=== PATIENT | female | born 1970 | race Caucasian/White ===

== ENCOUNTER → 2023-10-03 14:51 | Outpatient (REF) | payer OTHER, SELFPAY ==
[2023-10-03 15:57] LABS: % Basophils 0.9 % (0-2); % Eosinophils 1.6 % (0-6); % Immature Granulocytes 0.2 % (0-0.5); % Monocytes 6.7 % (1.7-9.3); % Neutrophils 63.6 % (42.2-75.2); Absolute Basophils 0.1 10^3/uL (0-0.2); Absolute Eosinophils 0.2 10^3/uL (0-0.7); Absolute Lymphocytes 2.6 10^3/uL (1.2-3.4); Absolute Monocytes 0.7 10^3/uL (0.1-0.6); Absolute Neutrophils 6.2 10^3/uL (1.4-6.5); Hematocrit 38.9 % (37.0-47.0); Hemoglobin 13.4 g/dL (12.0-16.0); Mean Corp Hgb Conc. 34.4 g/dL (33.0-37.0); Mean Corpuscular Hgb 30.7 pg (27.0-31.0); Mean Corpuscular Volume 89.2 fL (81.0-99.0); Nucleated Red Blood Cells % 0 %; Platelet Count 213 10^3/uL (130-400); Red Blood Cell Count 4.36 10^6/uL (4.20-5.40); Red Cell Dist. Width 12.6 % (11.5-14.5); White Blood Cell Count 9.7 10^3/uL (4.8-10.8)
[2023-10-03 16:19] LABS: Blood Urea Nitrogen 15 mg/dl (7-17); Calcium 9.4 mg/dl (8.4-10.2); Carbon Dioxide 25 mmol/L (22-30); Chloride 102 mmol/L (98-107); Glucose 95 mg/dl (70-99); Potassium 3.9 mmol/L (3.5-5.1); Sodium 137 mmol/L (135-145); eGFR > 60.00
== END ==
LOC: RCS 14:51
PROVIDERS: ATTENDING PHYSICIAN Orthopaedic Surgery Hand Surgery; FAMILY PHYSICIAN Internal Medicine
DX: Z01.818 Encounter for other preprocedural examination (principal)
CPT/HCPCS: 36415; 80048; 85025; 93005

== ENCOUNTER 2023-10-22 15:39 | Outpatient (RCR) | payer OTHER, SELFPAY | END 2023-10-22 23:59 | disposition home or self-care (01) | LOC: RPT 15:39 | PROVIDERS: ATTENDING PHYSICIAN Orthopaedic Surgery Hand Surgery; FAMILY PHYSICIAN Internal Medicine | DX: M25.511 Pain in right shoulder (principal); Z98.890 Other specified postprocedural states; Z73.6 Limitation of activities due to disability | CPT/HCPCS: 97110; 97140; 97162 ==

== ENCOUNTER 2023-11-13 10:08 | Outpatient (RCR) | payer OTHER, SELFPAY | END 2023-11-13 23:59 | disposition home or self-care (01) | LOC: RPT 10:08 | PROVIDERS: ATTENDING PHYSICIAN Orthopaedic Surgery Hand Surgery; FAMILY PHYSICIAN Internal Medicine | DX: M25.511 Pain in right shoulder (principal); Z98.890 Other specified postprocedural states; Z73.6 Limitation of activities due to disability | CPT/HCPCS: 97110; 97140 ==

== ENCOUNTER 2023-12-12 11:02 | Outpatient (RCR) | payer OTHER, SELFPAY | END 2023-12-12 23:59 | disposition home or self-care (01) | LOC: RPT 11:02 | PROVIDERS: ATTENDING PHYSICIAN Orthopaedic Surgery Hand Surgery; FAMILY PHYSICIAN Internal Medicine | DX: Z47.89 Encounter for other orthopedic aftercare (principal); Z73.6 Limitation of activities due to disability; M25.511 Pain in right shoulder | CPT/HCPCS: 97110; 97140 ==

== ENCOUNTER → 2023-12-17 12:46 | Outpatient (REF) | payer OTHER, SELFPAY | LOC: HWRAD 12:46 | PROVIDERS: ATTENDING PHYSICIAN Obstetrics & Gynecology Gynecology; FAMILY PHYSICIAN Internal Medicine | DX: N95.0 Postmenopausal bleeding (principal) | CPT/HCPCS: 76830; 76856 ==

== ENCOUNTER 2024-03-06 13:51 | Emergency (ER) | payer OTHER, SELFPAY ==
[2024-03-06 13:55] VITALS: BP 145/83
--- NOTE | 2024-03-06 16:17 | ED.GENMED ---
History of Present Illness
General
Chief Complaint: DVT/Possible Blood Clot
Source: patient
Exam Limitations: none
Time Seen by Provider: 03/06/24 14:47
Nursing documentation reviewed up to this point in time: agreed with
History of Present Illness
History of Present Illness:
53-year-old female left calf pain, onset a few days ago she flew to [place], was very hot doing some running think she could have strained her leg, was not drinking very much, did have some shortness of breath which improved when she came back to the
[place], she thought it was due to the heat, she is been home for about 24 hours no shortness of breath that she has been back no history of DVT PE
Past History
Past History
ED Past Medical History: None
ED Past Surgical History: None
Social History
Tobacco: Non-smoker
Alcohol: None
Drug: None
Personal:
Living: with family
Employment: Employed
Review of Systems
Review of Systems
All Other Systems: Not applicable
Constitutional: Denies fever or fatigue
Respiratory: Denies cough or trouble breathing
Cardiac: Denies chest pain
Musculoskeletal: Reports muscle pain and muscle stiffness
Neurological: Reports no symptoms
Endocrine: Reports no symptoms
Phy Exam
Physical Exam
Physical Exam:
Physical Exam
General: no apparent distress, not acutely ill
Neck: no jaundice
Heart: s1/s2 regular rate and rhythm, no murmur. equal radial pulses.
Lungs: no acute respiratory distress. clear bilaterally
Neuro: alert and oriented. no focal neurological deficits
Skin: no rash
Psychiatric: well kept. interactive and cooperative
Extremities: Tenderness in the left calf no cords
Course
Orders/Labs/Results
Orders:
Orders
03/06/24 14:04
US Periph Venous LOWER Ext LT Urgent
Comment:
Reason For Exam: calf pain
Vital Signs
Initial and Last Documented VS:
Initial Vital Signs
Temp Pulse Resp BP Pulse Ox
98.0 F 74 20 145/83 100
03/06/24 13:55 03/06/24 13:55 03/06/24 13:55 03/06/24 13:55 03/06/24 13:55
Last Documented Vital Signs
Temp Pulse Resp BP Pulse Ox
98.0 F 74 20 145/83 100
03/06/24 13:55 03/06/24 13:55 03/06/24 13:55 03/06/24 13:55 03/06/24 13:55
MDM/Problems Addressed
Differential Diagnosis Includes:
DVT muscle strain electrolyte abnormality
MDM/Problems Addressed:
Calf pain
*Radiology
Radiology exam reviewed: radiology read reviewed
*Pulse Oximetry
Patient hypoxic: no
*Critical Care Note
Total Time (30-74mins, 75-104mins- exclusive of procedures): Not Applicable
Update Note
Update Note:
Update, patient states she has been overall been feeling pretty well with exception of calf pain since she returned from her trip, certainly some degree of heat exhaustion or dehydration, her Doppler is negative for clot suggest that she go home
drink a lot of fluids including Gatorade, Motrin return to the ER for worsening symptoms
ED Attending Note
-
Portions of this chart may have been created with voice recognition software.� Occasional wrong word or��sound alike� substitutions may have occurred due to the inherent limitations of voice recognition software.
Discharge Plan
Departure
Patient Disposition: Home (Routine Discharge)
Date of Disposition: 03/06/24
Time of Disposition: 15:55
Patient with high blood pressure during this ER visit?: No
Condition: Good
Covid-19: Not Applicable
Discharge Problem:
Calf pain
Instructions: Muscle Strain ED
Referrals:
Demetri Michel, DO [Family Provider] -
Activity Restrictions/Additional Instructions:
Ibuprofen every 6 hours drink plenty of fluids return to the ER for worsening symptoms
Interventions
Interventions:
*General Assessment Last Done: 03/06/24 13:58
ED-Skin Assessment Last Done: 03/06/24 15:03
Discharge Date and Time
Print Language: SINHALA
[2024-03-06 16:27] VITALS: BP 128/88
== END 2024-03-06 16:28 | disposition home or self-care (01) ==
LOC: EMR 13:51
PROVIDERS: EMERGENCY PHYSICIAN Emergency Medicine; FAMILY PHYSICIAN Internal Medicine
DX: M79.662 Pain in left lower leg (principal); M79.18 Myalgia, other site; Z88.1 Allergy status to other antibiotic agents
CPT/HCPCS: 99284; 93971

== ENCOUNTER → 2024-07-29 14:59 | Outpatient (REF) | payer OTHER, SELFPAY | LOC: WDC 14:59 | PROVIDERS: ATTENDING PHYSICIAN Obstetrics & Gynecology Gynecology; FAMILY PHYSICIAN Internal Medicine | DX: Z12.31 Encounter for screening mammogram for malignant neoplasm of breast (principal) | CPT/HCPCS: 77063; 77067 ==

== ENCOUNTER → 2025-07-30 16:09 | Outpatient (REF) | payer OTHER, SELFPAY | LOC: WDC 16:09 | PROVIDERS: ATTENDING PHYSICIAN Internal Medicine | DX: Z12.31 Encounter for screening mammogram for malignant neoplasm of breast (principal) | CPT/HCPCS: 77063; 77067 ==